=== PATIENT | female | born 1980 | race Two or more races ===

== ENCOUNTER 2022-05-25 02:06 | Emergency (ER) | payer OTHER ==
[~2022-05-25] VITALS: Ht 157.5 cm; Wt 56.7 kg
[2022-05-25] MEDS ORDERED: STONEX PO (11:42)
[2022-05-25] MEDS ORDERED: DICLOFENAC POTA50 MG PO (11:42)
[2022-05-25] MEDS ORDERED: ONDANSETRON ODT4 MG PO (11:42)
== END 2022-05-25 11:51 ==
LOC: ER 02:06
DX: R10.32 Left lower quadrant pain (principal); Z20.822 Contact with and (suspected) exposure to COVID-19

== ENCOUNTER 2022-07-25 14:45 | Emergency (ER) | payer OTHER ==
[~2022-07-25] VITALS: Ht 157.5 cm; Wt 59.0 kg
[~2022-07-25 14:45] MED LIST: DICLOFENAC POTA50 MG PO; ONDANSETRON ODT4 MG PO; STONEX PO
== END 2022-07-25 17:14 | disposition home or self-care (01) ==
LOC: ER 14:45 → EMR PED 14:47 → ER 17:14
DX: G44.209 Tension-type headache, unspecified, not intractable (principal)

== ENCOUNTER 2022-09-12 07:51 | Emergency (ER) | payer OTHER ==
[~2022-09-12] VITALS: Ht 157.5 cm; Wt 58.1 kg
[2022-09-12] MEDS ORDERED: AMOX1TAB5 PO (09:39)
== END 2022-09-12 10:10 | disposition home or self-care (01) ==
LOC: ER 07:51
DX: L08.9 Local infection of the skin and subcutaneous tissue, unspecified (principal); Z91.018 Allergy to other foods

== ENCOUNTER 2022-09-23 08:44 | Emergency (ER) | payer OTHER ==
[~2022-09-23] VITALS: Ht 157.5 cm; Wt 58.1 kg
[~2022-09-23 08:44] MED LIST changes: +AMOX1TAB5 PO
== END 2022-09-23 11:05 | disposition home or self-care (01) ==
LOC: ER 08:44
DX: T23.021A Burn of unspecified degree of single right finger (nail) except thumb, initial encounter (principal); Z88.8 Allergy status to other drugs, medicaments and biological substances